=== PATIENT | female | born 1995 | race Caucasian/White ===

== ENCOUNTER 2023-01-14 09:40 | Inpatient (IN) | payer MEDICAID, SELFPAY ==
--- NOTE | 2023-01-05 15:21 | HP.PCM_ITS ---
History and Physical Date of Admission: 01/25/23 HPI: The patient is a 27 year old female presenting for pre-operative visit. She is scheduled for , for previous c/s nad 39 weeks on 01/26/23. Procedure discussed along with risks, benefits and complications. Other alternatives discussed for management. Consent form signed? Yes. ? ? PAST MEDICAL HISTORY PAST MEDICAL HISTORY Diagnosis Date ? Asthma ? ? Cleft palate, unspecified ? ? Multiple allergies ? ? bronchospasm/allergy induced ? PMH - PAST MEDICAL HISTORY OF 10/16/2009 ? normal color vision ? ? PAST SURGICAL HISTORY PAST SURGICAL HISTORY Procedure Laterality Date ? DELIVERY ONLY ? 01/12/16 ? , low transverse ? PAST SURGICAL HISTORY OF ? ? ? 2 hernia operations ? PAST SURGICAL HISTORY OF ? ? ? cleft repair @[facility] ? ? ? CURRENT MEDICATIONS Current Outpatient Medications Medication Sig Dispense Refill ? acetaminophen (TYLENOL) 500 mg tablet Take 2 tablets by mouth every 8 hours as needed. 60 tablet 1 ? [id number]-cv 27 mg iron- 1 mg-400 mg cap Take 1 capsule by mouth once daily. 30 capsule 14 ? ketotifen fumarate (ZADITOR) 0.025 % ophthalmic solution Use in both eyes. 1 DROP IN AFECTED EYE(S) EVERY 8 TO 12 HOURS NEEDED 5 mL 1 ? albuterol HFA (PROVENTIL HFA, VENTOLIN HFA) 90 mcg/actuation inhaler Inhale 2 Puffs as instructed four times daily as needed. FOR WHEEZING AND SHORTNESS OF BREATH. 1 Inhaler 0 ? No current facility-administered medications for this visit. ? ? ALLERGIES: Latex, Amoxicillin, and Shell Fish [Other] ? PERSONAL HISTORY: SOCIAL HISTORY Social History ? Tobacco Use ? Smoking status: Former ? ? Years: 4.00 ? ? Types: Cigarettes ? ? Quit date: 08/10/2022 ? ? Years since quittin.4 ? Smokeless tobacco: Never Vaping Use ? Vaping Use: Never used Substance Use Topics ? Alcohol use: No ? Drug use: Never ? FAMILY HISTORY: FAMILY HISTORY FAMILY HISTORY Problem Relation Age of Onset ? Asthma Mother ? ? No Known Problems Father ? ? No Known Problems Sister ? ? No Known Problems Sister ? ? No Known Problems Brother ? ? Thyroid Maternal Grandmother ? ? Cancer Maternal Grandmother ? ? Lung ? Diabetes Maternal Grandfather ? ? Dementia Maternal Grandfather ? ? No Known Problems Paternal Grandmother ? ? Cancer Paternal Grandfather ? ? Asthma Daughter ? ? ? REVIEW OF SYMPTOMS: GENERAL: denies fevers or chills ENDOCRINOLOGY: has not been on steroids Cardiology : denies palpitations or chest pain Respiratory: denies SOB or cough Hematology: denies history of prolonged bleeding or easy bruising or VTE Allergy: Denies history of personal or family history of allergy to anesthesia ? PHYSICAL EXAMINATION: ? VITALS: Blood pressure 126/76, weight 190 lb (86.2 kg), last menstrual period 07/01/2022, unknown if currently . ? GENERAL: The patient is well nourished, well hydrated in no acute distress. , The patient is oriented to time, place, and person. NECK: Supple. No lynphadenopathy, normal thyroid, no thyromegaly. LUNGS: Clear to auscultation bilaterally. no wheezes, rhonchi or rales HEART: Regular rate and rhythm, Normal heart sounds, and No murmurs or gallops ABd- soft, nontender, gravid ? IMPRESSION: Estimated Date of Delivery: 02/02/23 for repeat c/s and tubal sterilization ? PLAN: The risks/benefits/alternatives and personal involved for the planned c/s were reviewed with the patient. Her questions were answered to her satisfaction and she desires to proceed. Consent was signed. I reviewed with her postop instructions and expectations. ? ? ? I have reviewed and updated past medical and surgical history, medications and allergies Assessment & Plan Assessment/Plan (1) Previous delivery affecting : (2) Sterilization:
[2023-01-14] VITALS (15 sets, daily range): BP systolic 93–148; BP diastolic 48–92; PULSE 59–90; RESP 16; TEMP 35.6–36.7; O2SAT 97–100; BMI 36.1
[2023-01-14] MEDS: Lactated Ringers 1,000 ML 999 ML IV (10:10)
[2023-01-14 10:27] LABS: Absolute Lymphocyte Count 1.31 X10^3/uL (0.83-4.51); Absolute Neutrophil Count 5.9 X10^3/uL (2.0-7.7); Basophil# 0.01 X10^3/uL; Basophil% 0.1 % (0-1); Eosinophil# 0.14 X10^3/uL; Eosinophils% 1.8 % (0-5); Hematocrit 33.5 % (37-47); Lymphocyte # 1.31 X10^3/ul (0.83-4.51); Mean Corp Hgb Conc 32.8 g/dL (32-36); Mean Corpuscular Hgb 30.2 pg (27.0-32.0); Mean Platelet Vol. 11.3 fl (6.2-12.0); Monocyte# 0.34 X10^3/uL; Monocyte% 4.4 % (0-10); NRBC Flagged by Analyzer 0 % (0-5); Neutrophil # 5.88 X10^3/uL (2.7-7.7); Neutrophil % 76.3 % (47-70); Platelet Count 209 K/mm3 (150-450); RBC Distribution Width CV 13.2 % (11.6-14.6); RBC Distribution Width SD 44.1 fl (35.1-43.9); Red Blood Count 3.64 M/mm3 (4.2-5.4); White Blood Count 7.7 K/mm3 (4.4-11.0)
[2023-01-14 11:11] LABS: Syphilis Antibodies Non-reactive
[2023-01-14] MEDS: Sodium Citrate/Citric Acid 30 ML UDC PO (12:07)
[2023-01-14] MEDS: Acetaminophen 500 MG Tablet 1000 MG PO ×2 (12:07→18:21)
[2023-01-14] MEDS: Lactated Ringers 1,000 ML 150 ML IV (12:08)
[2023-01-14 12:24] LABS: Amphetamine Urine VISTA NEGATIVE (<1000 ng/mL); Barbiturate Urine VISTA NEGATIVE (< 200 ng/mL); Benzodiazepine Urine VISTA NEGATIVE (< 200 ng/mL); Cocaine Urine VISTA NEGATIVE (< 300 ng/mL); Ecstacy Urine VISTA NEGATIVE (< 500 ng/mL); Methadone Urine VISTA NEGATIVE (< 300 ng/mL); PCP Urine VISTA NEGATIVE (< 25 ng/mL); THC Urine VISTA NEGATIVE (< 50 ng/mL); Vista UDS pH Range 6
--- NOTE | 2023-01-14 13:01 | FALS_PTH ---
PATIENT: TRACIE TORREZ LOC: [facility] U#:[id number] AGE/SX: 27/F ROOM: WP002 RE01/14/[address]: Dr. Nancie Sanchez MD : [id number] BED: 1 DIS: 01/16/2023 SPEC #: [id number] RECD: 01/17/23 08:45 STATUS: QUEENIE MAURA #: [id number] YOUNG: 01/14/23 13:[address]: Nancie Sanchez DEPT: SURGICAL PATHOLOGY RECD BY: Suly Bravo Tissues: Fallopian tube Procedures: Surgery Specimen Level II HEADER OPERATION: Tubal ligation PRE-OP DIAGNOSIS: Sterilization TISSUE SUBMITTED: Fallopian tubes, tie on right MICROSCOPIC DIAGNOSIS Right and left fallopian tubes, bilateral salpingectomies: Benign epithelial cysts. AM:sanjeev 01/18/2023 MICROSCOPIC DESCRIPTION Slides are reviewed. GROSS DESCRIPTION Received in fixative is one container labeled with the patient's name and designated bilateral fallopian tubes. The specimen consists of two fallopian tubes with an average length of 4.5 cm and has an average diameter of 0.7 cm. Both fallopian tubes have normal fimbriated ends. No mass lesions are identified. Lead Systems Developer sections are submitted in two cassettes as follows: 1 - fallopian tube with suture, 2 - fallopian tube without suture. / AM:sanjeev 01/17/2023 TC:5 CPT: 81796 x2
[2023-01-14] MEDS: Oxytocin 15 Units/NS 250ml 15 UNITS/250 ML IV.SOLN 83 UNITS IV (13:05)
--- NOTE | 2023-01-14 13:06 | EX.PCM.OBRPT ---
Assessment & Plan (1) Previous delivery affecting : (2) Sterilization: (3) 37 weeks gestation of : (4) Gestational hypertension, third trimester: Maternal Data Information Final ANKITA: 02/02/23 Gestational age: 37 2/7 Details Operative Information Date of Procedure: 01/14/23 Pre-Operative Diagnosis: previous c/s, sterilization request Post-Operative Diagnosis: same Classification: Scheduled Procedure Type: low transverse (with bilateral salpingectomy) guest experience specialist #1: Dayana Wolff Type of Anesthesia: Spinal Anesthesiologist: Sanju Kahn Special Medications: duramoprh Antibiotic Given: Ancef 2 grams IV x1 Drain: Underwood to straight drain Estimated Blood Loss: 600 Fluids Replaced: 1000 Procedure Start Time: 12:21 Procedure Stop Time: 12:44 Time of Delivery: 12:25 Findings Description of Procedure: The patient was taken to the operating room. She was prepped and draped in the dorsal supine position with a leftward tilt. A Pfannenstiel skin incision was made approximately 2 cm above the symphysis pubis and carried through to underlying layer fascia with the scalpel. The fascia was incised incised in the midline and extended laterally with the Mckay scissors. The rectus muscles were in the midline and the peritoneum was entered bluntly. The peritoneal incision was stretched and the bladder blade was placed. The uterine incision was made in a low transverse fashion with the scalpel and extended superiorly and inferiorly with blunt dissection. The amniotic membranes were ruptured bluntly and clear amniotic fluid returned. The 's head was brought to the incision in the flexed position and delivered without difficulty. The remainder of the was delivered with gentle traction and fundal pressure in the standard fashion. The mouth and nares were bulb suctioned. The cord was clamped and cut as the was stimulated. Cord clamping was delayed. The infant was handed off to the waiting nursing staff. The placenta was delivered with fundal massage and gentle traction in the standard fashion. The uterus was exteriorized and cleared of all clots and debris. The cervix was dilated with a ring forcep. The uterine incision was closed with #1 Vicryl in a running locked fashion. A jjhird-[id number]-[id number] 0 Vicryl suture was needed in the left corner of the incision to obtain hemostasis. The incision was examined and was found to be hemostatic. The left fallopian tube was then identified and followed out to the fimbriated end. The LigaSure device was used to clamp, seal and transect the antimesenteric portion of the tube to the cornual insertion. The cornual insertion of the tube was clamped, sealed and transected with LigaSure device and the pedicles were hemostatic. The same procedure was performed on the contralateral side and again the pedicles were hemostatic. The specimens were handed off. The uterus was placed back into the peritoneal cavity and hemostasis was again confirmed. The rectus muscles were examined and any bleeding was Bovie cauterized. The parietal peritoneum and rectus muscles were closed en bloc with an 0 Vicryl running suture. The surgical teams outer gloves were then changed. The rectus fascia was examined and any bleeding was Bovie cauterized and the rectus fascia was closed with 1 Vicryl suture in a running standard fashion. The subcutaneous tissue was examining and any bleeding was Bovie cauterized. The subcutaneous tissue was reapproximated with 3-0 Vicryl suture. The skin was closed in a subcuticular fashion. I performed the entire procedure with assistance. All sponge, lap, and needle counts were correct. The patient was taken to her room for recovery in a stable condition. Presentation: Positive for Vertex Amniotic Membrane Rupture Type: Artificial Amniotic Fluid Description: Clear Placental Delivery Description: Expressed Placenta Disposition: [facility] Specimen(s) Sent to Pathology: bilateral fallopian tubes Cord Vessel Description: 3 Vessels Cord Entanglement: None A Gender: Female (Radha) (1 minute): 9 (5 minute): 9 Delayed Cord Clamping: Yes Complications Complications: none
[2023-01-14] MEDS: Ketorolac 30 MG/ML Syringe IV ×2 (14:03→19:05)
[2023-01-14] MEDS: Lactated Ringers 1,000 ML 100 ML IV (16:02)
[2023-01-14 18:22] LABS: Pathology Specimen OB SEE PATHOLOGY REPORT
[2023-01-14] MEDS: NIFEdipine 10 MG Capsule PO (19:01)
[2023-01-14 19:10] LABS: Hematocrit 33.3 % (37-47); Hemoglobin 10.9 g/dL (12.0-15.0); Mean Corp Hgb Conc 32.7 g/dL (32-36); Mean Corpuscular Hgb 30.4 pg (27.0-32.0); Mean Platelet Vol. 11.2 fl (6.2-12.0); Platelet Count 213 K/mm3 (150-450); RBC Distribution Width CV 13.1 % (11.6-14.6); RBC Distribution Width SD 44.8 fl (35.1-43.9); Red Blood Count 3.58 M/mm3 (4.2-5.4)
--- NOTE | 2023-01-14 19:10 | NURSING ---
made aware of elevated blood pressures. Orders received to obtain pre E labs and to give Procardia 10mg po now. labs drawn and sent to lab. procardia 10mg po given.
[2023-01-14 19:20] LABS: AST(SGOT) 19 U/L (15-37); Alanine Aminotransfer ALT/SGPT 34 U/L (13-56); Creatinine, Serum 0.56 mg/dL (0.55-1.02); EST Glomerular Filtration Rate 136 mL/min (>60); Est Glom Filt Rate - Afr Amer 165 mL/min (>60); Estimated Creatinine Clearance 113.87 ml/min; Uric Acid 4.9 mg/dL (2.6-6.0)
[2023-01-14 19:35] LABS: Protein, Urine (Random) 22.5 mg/dL (<11.9); Protein:Creat Ratio 227 mg/g CRE (0-200)
[2023-01-14] MEDS: NIFEdipine 30 MG Tablet PO (21:48)
[2023-01-15] VITALS (7 sets, daily range): BP systolic 110–136; BP diastolic 69–90; PULSE 81–102; RESP 16; TEMP 36.2–36.8; O2SAT 96–100
[2023-01-15] MEDS: Acetaminophen 500 MG Tablet 1000 MG PO ×4 (00:26→18:42)
[2023-01-15] MEDS: Ketorolac 30 MG/ML Syringe IV ×2 (01:43→08:24)
[2023-01-15] MEDS: 0.9% Saline Lock 10 ML Syringe IV (01:44)
[2023-01-15 04:59] LABS: Hematocrit 37.8 % (37-47); Hemoglobin 12.2 g/dL (12.0-15.0); Mean Corp Hgb Conc 32.3 g/dL (32-36); Mean Corpuscular Hgb 30.4 pg (27.0-32.0); Mean Corpuscular Volume 94.3 fL (81-99); Mean Platelet Vol. 10.9 fl (6.2-12.0); Platelet Count 224 K/mm3 (150-450); RBC Distribution Width CV 13.2 % (11.6-14.6); RBC Distribution Width SD 45.4 fl (35.1-43.9); Red Blood Count 4.01 M/mm3 (4.2-5.4)
--- NOTE | 2023-01-15 10:27 | PN.OBGYN_ITS ---
Subjective Subjective Denies headaches or blurry vision. Pain controlled. Objective Data Objective Data Vital Signs: Vital Signs Temp Pulse Resp BP Pulse Ox O2 Del Method 97.6 F L 94 16 136/90 H 100 Room Air 01/15/23 08:25 01/15/23 08:25 01/15/23 08:25 01/15/23 08:25 01/15/23 08:25 01/15/23 08:25 Oxygen Delivery Method Room Air Weight: 191 lb Body Mass Index (BMI) 36.1 Intake & Output: Intake and Output for Last 24 Hours 01/13/23 01/14/23 01/15/23 23:59 23:59 23:59 Intake Total 2624.17 / 2624.17 606.67 / 606.67 Output Total 1550 / 1550 1100 / 1100 Balance 1074.17 / 1074.17 -493.33 / -493.33 Lab / Micro Data Result Diagrams: 01/15/23 04:50 01/14/23 18:50 Labs: Laboratory Results - last 24 hr 01/14/23 10:10: WBC 7.7, RBC 3.64 L, Hgb 11.0 L, Hct 33.5 L, MCV 92.0, MCH 30.2, MCHC 32.8, RDW Std Deviation 44.1 H, RDW Coeff of Kassandra 13.2, Plt Count 209, MPV 11.3, Immature Gran % (Auto) 0.400, Neut % (Auto) 76.3 H, Lymph % (Auto) 17.0 L, Baraga % (Auto) 4.4, Eos % (Auto) 1.8, Baso % (Auto) 0.1, Absolute Neuts (auto) 5.9, Absolute Lymphs (auto) 1.31, Nucleated RBC % 0 01/14/23 10:10: Blood Type A POSITIVE, Antibody Screen NEGATIVE 01/14/23 10:10: Syphilis Total Ab Non-reactive 01/14/23 11:56: Urine Opiates Screen NEGATIVE, Urine Methadone Screen NEGATIVE, Ur Barbiturates Screen NEGATIVE, Ur Phencyclidine Scrn NEGATIVE, Ur Amphetamines Screen NEGATIVE, MDMA (Ecstasy) Screen NEGATIVE, U Benzodiazepines Scrn NEGAT EVERARDO, Urine Cocaine Screen NEGATIVE, U Cannabinoids Screen NEGATIVE, Ur Drug Screen Comment 01/14/23 18:50: WBC 11.0, RBC 3.58 L, Hgb 10.9 L, Hct 33.3 L, MCV 93.0, MCH 30.4, MCHC 32.7, RDW Std Deviation 44.8 H, RDW Coeff of Kassandra 13.1, Plt Count 213, MPV 11.2 01/14/23 18:50: U Random Total Protein 22.5 H, Urine Creatinine 99.30, Protein/Creatinin Ratio 227 H 01/14/23 18:50: Creatinine 0.56, Estim Creat Clear Calc 113.87, Est GFR (MDRD) Af Amer 165, Est GFR (MDRD) Non-Af 136, Uric Acid 4.9, AST 19, ALT 34 01/15/23 04:50: WBC 10.0, RBC 4.01 L, Hgb 12.2, Hct 37.8, MCV 94.3, MCH 30.4, MCHC 32.3, RDW Std Deviation 45.4 H, RDW Coeff of Kassandra 13.2, Plt Count 224, MPV 10.9 Physical Exam Const alert, oriented x3 and no apparent distress HEENT normocephalic GI soft to palpation, non-tender and non-distended GI Narrative: fundus firm, mid & below umbilicus Incision - bandage c/d/i Extremity normal to inspection and no calf tenderness Assessment & Plan (1) Gestational hypertension, third trimester: COMMENT: POD#1 PLAN: Continue procardia for mildly elevated BP's preE labs normal (2) Previous delivery affecting : PLAN: Heme - HDS, CBC reviewed ID - AF, no signs infection GI/ - no issues
--- NOTE | 2023-01-15 11:08 | CASEMGMT ---
Addendum entered by Consuelo Mccann 01/15/23 11:48: Social Work SW [facility] w[facility] MOB cleared to go home, they may follow up w/her at home. SW let MOB know. Also, meconium is pending, SW will call [facility] if that comes back positive. JOSEF Bess Original Note: Social Work Labor and Delivery Unit Date/Time of referral: 01/14/23 at 11:17am Referred by: Nancie Sanchez Date/Time of intervention: 01/15/23 10:30 am Reason for referral: [facility] History obtained from: AMERICO, CHASTITY Sander Gray was leaving when SW got to the room. Household composition: MOB, FOB, MOB's 7 year old Ivette and MOB's mother. MOB and FOTamika have been together for 3 years, have known each other 5. Parent/Guardian Status: MOB guardian of both of her children. MOB explains Ivette's father is in a prison. He is involved but cannot care for her. She explains his body shut down and he was in a car, it caused a spinal chord injury. She states he had a prior back injury so it led to this. She states he was not using, just marijuana. He has been in and out of hospitals and nursing homes since this injury, is now in a prison in [place]. She states this happened a month after Ivette was born. She did lose custody temporarily in 2019 of Ivette. She states her aunt and uncle called [facility] as they were concerned she could not care for Ivette. AMERICO had been living w/her mom and when she moved out on her own they called [facility]. They had temporary custody, MOB was able to get custody back. Also, CHASTITY, Sander Gray, has two other children, ages 9 and 10. As per MOB he does not see them. According to MOB, Sander is working through the courts at present to be able to see the children. Medical History: MOB: history of cleft palate and asthma MOB reports history of a couple of losses during . She had late care as she did not know she was initially, then was anxious due to the losses. Baby: Born 01/14/23 12:24pm, 3040 grams, Apgars 9 and 9 at one and five minutes. Educational History: MOB: Completed high school. FOB: Completed 11th grade Financial Concerns:AMERICO reports none. She works at [employer]. CHASTITY plans to get a job with [employer], is waiting a bit before going to work however until AMERICO recovers more. When AMERICO returns to work, her mom or Sander will care for the baby. Supplies: They have all needed supplies including diapers, wipes, car seat, crib, bassinet, clothing, formula, bottles Childcare/Caregivers: MOB, FOB, MOB's mother Transportation: They have 1 vehicle. Programs/Agencies Involved: Medicaid, MOB reports to have food stamps and plans to sign up for [facility] Children's Services/Legal Issues: None at present. MOB did report [facility] involvement as explained above. Behavioral Health Issues: Substance abuse: AMERICO states CHASTITY used but quit 9-10 years ago. She was not specific in what he used, states that he used to constitution party, he doesn't really say what he used. AMERICO denies use of any substances other than marijuana. She confirms smoked on 12/29/22 as she was stressed. She states she only smoked 2 times during . She states was worried due to being and prior losses--was anxious about losing the baby. Her tox screen was negative, the baby's meconium is pending. Mental Health: AMERICO reports she thinks CHASTITY is down due to the issues with not seeing his children. AMERICO states has never been diagnosed with anything, has never been on meds or in counseling. She was having a tough time after Ivette was born, as her father was having major health issues, her grandpa was sick, her mom was having health issues, and she had a new baby. Support Systems: AMERICO's mother, CHASTITY Family/Social Stressors: None as per MOB Depression and Anxiety/Shaken Baby/Safe Sleeping/Resources/Help Me Grow: SW reviewed all resources w/MOB, and reviewed in particular the warning signs of PPD and anxiety. SW emphasized to MOB if having anxiety or depression symptoms that she should reach out to her doctor, also consider counseling. MOB states understanding. Assessment: MOB appropriate, answered all questions. Initially she answered in a vague manner but when SW asked more questions she answered more directly. MOB holding baby and appropriate w/care. SW did tell MOB SW will be calling [facility] due to MOB reporting using [facility], SW explained will let her know what they say. MOB states understanding, concerned but not overly so with SW calling. Plan: TBD, MARLENA called [facility] and awaiting a return call. JOSEF Bess
[2023-01-15] MEDS: Senna/Docusate Sodium 1 Tablet PO (12:31)
[2023-01-15] MEDS: Ibuprofen 600 MG Tablet PO ×2 (15:12→20:36)
[2023-01-15] MEDS: oxyCODONE 5 MG Tablet PO (20:37)
[2023-01-15] MEDS: NIFEdipine 30 MG Tablet PO (22:16)
[2023-01-16] MEDS: Acetaminophen 500 MG Tablet 1000 MG PO ×2 (00:48→06:39)
[2023-01-16] MEDS: Ibuprofen 600 MG Tablet PO ×2 (02:32→08:23)
[2023-01-16 02:33] VITALS: BP 135/90; PULSE 82; RESP 16; TEMP 37.1; O2SAT 97
--- NOTE | 2023-01-16 06:48 | DCINST_ITS ---
Discharge Instructions Diet Discharge Diet: No restrictions Activity Discharge Activity: May Shower May resume sexual activity in: 6 weeks Weight Bearing Status: Weight bearing as tolerated Dressing / Incision Call your doctor if your incision/area has: Continuous Slow Oozing, Sudden Increased Bleeding, Increased Pain/ Swelling, Increased Redness, Foul Smelling Discharge and Swelling at the incision site Call your doctor if you observe: Fever of 101 or Higher, Coldness, Increased Pain, Change in Color, Inability to urinate, Inability to have a bowel movement, Using more than 1 pad per hour, Shortness of breath, Dizziness, Fainting spells, Chest pain, Increased palpitations (irregular heartbeat), Calf discomfort and Uncontrolled pain Suture Line Care: Avoid Pulling/Pushing and Avoid Pinching/Bending Remove Dressing in: 1 week Cleanse incision/area with: Soap & Water Follow Up Care Please Follow Up With: Kassy Fishman MD When: Follow up within 1 week and 6 weeks for visits. Test Results: Test results from this visit will be discussed in further detail at your follow- up appointment, if applicable. Discharge Plan Admission Admit Date/Time: 01/14/23 09:40 Primary Reason for Your Visit: section Attending Provider: Nancie Sanchez Discharge Orders/Prescriptions Prescriptions: New nifedipine 30 mg Tablet Extended Release 24hr 30 mg PO DAILY@2200 Qty: 30 0RF acetaminophen 500 mg Tablet 1,000 mg PO Q6 Qty: 0 0RF ibuprofen 600 mg Tablet 600 mg PO Q6H Qty: 0 0RF Continued Prenatabs FA 1 TABLET tablet 1 tab PO DAILY Disposition Disposition (needs filled in before D/C Order can be placed): Home, Self Care
--- NOTE | 2023-01-16 06:54 | PCM.PN.OB ---
Subjective Subjective Denies complaints Objective Data Objective Data Vital Signs: Vital Signs Temp Pulse Resp BP Pulse Ox O2 Del Method 98.7 F 82 16 135/90 H 97 Room Air 01/16/23 02:33 01/16/23 02:33 01/16/23 02:33 01/16/23 02:33 01/16/23 02:33 01/16/23 02:33 Oxygen Delivery Method Room Air Weight: 191 lb Body Mass Index (BMI) 36.1 Intake & Output: Intake and Output for Last 24 Hours 01/14/23 01/15/23 01/16/23 23:59 23:59 23:59 Intake Total 2624.17 / 2624.17 606.67 / 606.67 Output Total 1550 / 1550 1300 / 1300 Balance 1074.17 / 1074.17 -693.33 / -693.33 Lab / Micro Data Result Diagrams: 01/15/23 04:50 01/14/23 18:50 Physical Exam Const alert, oriented x3 and no apparent distress HEENT normocephalic GI soft to palpation, non-tender and non-distended GI Narrative: fundus firm, mid & below umbilicus Incision - bandage c/d/i Extremity normal to inspection and no calf tenderness Assessment & Plan (1) Gestational hypertension, third trimester: COMMENT: POD#2 PLAN: BP's overall normal & no severe range. Continue procardia. Likely discharge home this afternoon & follow up in office this week. Routine PP care.
[2023-01-16 08:00] VITALS: BP 125/80; PULSE 91; RESP 18; TEMP 36.5; O2SAT 99
[2023-01-16] MEDS: Senna/Docusate Sodium 1 Tablet PO (08:22)
== END 2023-01-16 10:55 | disposition home or self-care (01) | DRG 539 ==
PROVIDERS: Obstetrics & Gynecology; Admitting Provider Obstetrics & Gynecology; Visit Provider Obstetrics & Gynecology
PROC: 10D00Z1 Extraction of Products of Conception, Low, Open Approach (ICD-10-PCS; CPT 59514; principal; 2023-01-14 11:45)
DX: O34.211 Maternal care for low transverse scar from previous cesarean delivery (principal); O13.4 Gestational [pregnancy-induced] hypertension without significant proteinuria, complicating childbirth; Z30.2 Encounter for sterilization; Z37.0 Single live birth; Z3A.37 37 weeks gestation of pregnancy; Z79.899 Other long term (current) drug therapy; Z87.891 Personal history of nicotine dependence
CPT/HCPCS: 59050; 80307; 82565; 82570; 84156; 84450; 84460; 84550; 85025; 85027; 86780; 86850; 86900; 86901; 88302; 99221; J7120; A4216; G0378